=== PATIENT | female | born 1980 | race Caucasian/White ===

== ENCOUNTER 2018-02-13 14:57 | Observation (INO) | payer OTHER ==
[2018-02-13] MEDS ORDERED: CEFAZOLIN 2 GM/50 ML (PMX) 50 ML IVPB (16:30)
[2018-02-13] MEDS ORDERED: LIDOCAINE 2% (MDV) 20 ML INJ (17:52)
[2018-02-13] MEDS ORDERED: BUPIVACAINE 0.5% (SDV) 30 ML INJ (17:52)
[2018-02-13] MEDS ORDERED: MIDAZOLAM 1 MG/ML 2 ML INJ (17:53)
[2018-02-13] MEDS: POLYMYXIN/BACITRACIN 1L IRRIG (18:39)
[2018-02-13] MEDS ORDERED: ROPIVACAINE 0.5 % 30 ML VIAL (19:51)
[2018-02-13] MEDS ORDERED: ROCURONIUM 50 MG INJ (20:13)
[2018-02-13] MEDS ORDERED: LIDOCAINE 2% (SDV) 5 ML INJ (20:13)
[2018-02-13] MEDS ORDERED: PROPOFOL 20 ML (20:13)
[2018-02-13] MEDS ORDERED: KETOROLAC 30 MG INJ ×2 (20:15→20:34)
[2018-02-13] MEDS ORDERED: ONDANSETRON 4 MG INJ (20:15)
[2018-02-13] MEDS ORDERED: CEFAZOLIN 1 GM INJ (20:20)
[2018-02-13] MEDS ORDERED: FENTAnyl 50 MCG/ML VIAL (20:34)
[2018-02-13] MEDS: MEPERIDINE 25 MG INJ IV (20:39)
[2018-02-13] MEDS: FENTAnyl 50 MCG/ML VIAL IV (20:39)
[2018-02-13] MEDS: KETOROLAC 30 MG INJ IV (20:40)
[2018-02-13] MEDS ORDERED: HYDROmorphONE 1 MG/5 ML IV SYRINGE IV (21:00)
[2018-02-13] MEDS ORDERED: METOCLOPRAMIDE 10 MG INJ IV (21:00)
[2018-02-13] MEDS ORDERED: DIPHENHYDRAMINE 50 MG INJ IV (21:00)
[2018-02-13] MEDS ORDERED: MIDAZOLAM 1 MG/ML 2 ML INJ IV (21:00)
[2018-02-13] MEDS: HYDROmorphONE 1 MG/5 ML IV SYRINGE IV (21:32)
[2018-02-13] MEDS: ONDANSETRON 4 MG INJ IV (21:34)
[2018-02-13] MEDS ORDERED: MAGNESIUM HYDROXIDE 30ML CUP PO (22:30)
[2018-02-13] MEDS ORDERED: morphine 2 MG INJ IV (22:30)
[2018-02-13] MEDS ORDERED: ACETAMINOPHEN 325 MG TAB PO (22:30)
[2018-02-13] MEDS ORDERED: NACL 0.9% 3 ML SYG IV (22:30)
[2018-02-13] MEDS ORDERED: BISACODYL 10 MG SUPP PR (22:30)
[2018-02-13] MEDS ORDERED: NITROGLYCERIN (SL) 0.4 MG TAB SL (22:30)
[2018-02-13] MEDS ORDERED: DOCUSATE SODIUM 100 MG CAP PO (22:30)
[2018-02-13 23:07] LABS: CREATINE KINASE 47 IU/L (23-200)
[2018-02-13 23:20] LABS: CK INDEX 0.5; CK-MB < 0.22 ng/ml (0.0-2.4); TROPONIN-I < 0.010 ng/ml (0.000-0.120)
[2018-02-13 23:59] LABS: B-TYPE NATRIURETIC PEPTIDE 49 PG/ML (0-125)
[2018-02-14] MEDS: KETOROLAC 15 MG INJ IV (01:43)
[2018-02-14] MEDS: ONDANSETRON 4 MG INJ IV (01:43)
[2018-02-14] MEDS: LORAZEPAM 2 MG INJ IV (03:01)
[2018-02-14] MEDS: PANTOPRAZOLE (EC) 40 MG TAB PO (09:08)
[2018-02-14 09:18] LABS: ADD MAN DIFF? NO
[2018-02-14 09:23] LABS: BASOPHILS % 0.2 % (0.0-2.0); EOSINOPHILS % 0.1 % (0.0-7.0); HEMATOCRIT 34.9 % (37.0-47.0); HEMOGLOBIN 11.3 g/dl (12.0-16.0); LYMPHOCYTES # 2.2 10^3/ul (0.8-2.9); LYMPHOCYTES % 21.6 % (15.0-51.0); MEAN CORPUSCULAR HEMOGLOBIN 26.5 pg (29.0-33.0); MEAN CORPUSCULAR HGB CONC 32.4 g/dl (32.0-37.0); MEAN CORPUSCULAR VOLUME 81.9 fl (82.0-101.0); MEAN PLATELET VOLUME 10.2 fl (7.4-10.4); MONOCYTE # 0.5 10^3/ul (0.3-0.9); MONOCYTES % 5.2 % (0.0-11.0); NEUTROPHIL # 7.2 10^3/ul (1.6-7.5); NEUTROPHILS % 72.6 % (39.0-77.0); PLATELET COUNT 290 10^3/UL (140-415); RED BLOOD COUNT 4.26 10^6/ul (4.20-5.40); RED CELL DISTRIBUTION WIDTH 13.2 % (11.5-14.5)
[2018-02-14 09:23] LABS: WHITE BLOOD COUNT 9.9 10^3/ul (4.8-10.8)
[2018-02-14 09:42] LABS: CREATINE KINASE 144 IU/L (23-200)
[2018-02-14 09:44] LABS: ANION GAP 15 (8-16); BLOOD UREA NITROGEN 7 mg/dl (7-20); CALCIUM 9.1 mg/dl (8.4-10.2); CARBON DIOXIDE 23 mmol/L (21-31); CHLORIDE 106 mmol/L (97-110); CREATININE 0.61 mg/dl (0.44-1.00); GLUCOSE 93 mg/dl (70-220); MAGNESIUM 1.7 mg/dl (1.7-2.5); POTASSIUM 4.2 mmol/L (3.5-5.1); SODIUM 140 mmol/L (135-144)
[2018-02-14 09:56] LABS: CK INDEX 0.3; TROPONIN-I < 0.010 ng/ml (0.000-0.120)
[2018-02-14] MEDS: HYDROCODONE/APAP (5/325) TAB PO (13:58)
[2018-02-14 14:45] LABS: CREATINE KINASE 206 IU/L (23-200)
[2018-02-14 14:57] LABS: CK INDEX 0.1; TROPONIN-I < 0.010 ng/ml (0.000-0.120)
== END 2018-02-14 14:45 | disposition home or self-care (01) ==
LOC: SDS 14:57 → REC 22:10 → TEL 23:00
DX: M21.42 Flat foot [pes planus] (acquired), left foot (principal); M76.822 Posterior tibial tendinitis, left leg; Q66.89 Other specified congenital deformities of feet; R07.89 Other chest pain; R06.02 Shortness of breath; Z88.0 Allergy status to penicillin; Z88.2 Allergy status to sulfonamides; Z88.8 Allergy status to other drugs, medicaments and biological substances
CPT/HCPCS: 28238; 71045; 73610; 73620; 80048; 82550; 82553; 83735; 83880; 84484; 84703; 85025; 88304; 88311; G0378